=== PATIENT | male | born 1965 | race Caucasian/White ===

== ENCOUNTER → 2016-10-21 | Outpatient (CLI) | payer MEDICAID ==
[~2016-10-21] MED LIST: 1ST TIER UNILE1 EAC1 MC; BACTRIM DS TABL1 TA1 PO; CATAFLAM50 MG PO; CLEOCIN HCL300 M1 PO; FLEXERIL10 MG PO; GLUCOMETER DEX1 PKT IN; GLUCOSE TEST STRIPS; HYDROCODONE-APA1 T55 PO; LORTAB 7.51 TAB 7.5/ PO; METFORMIN HCL500 M2 PO; NAPROXEN PO; NO MEDICATIONS
--- NOTE | ~2016-10-21 | US116 ---
[facility] A Service of [facility] & [facility] RADIOLOGY TEXT RESULTS PATIENT: MONA DENNIS LOCATION: [facility] : 69 UNIT #: [id number] AGE: [address]: Freya Dailey SEX: M ORDER DR: [id number] [facility] [address] [place], [place] [address] [id number] O MR#: [id number] Acc #: [id number] NAME: MONA DENNIS : 1965 SEX: M STUDY DATE/TIME: 10/21/2016 14:07 UNIT: [facility] ROOM: STUDY DESCRIPTION: US Soft Tissue Head/Neck Attending Physician: Freya Dailey A.P.R.N. Referring Physician: Freya Dailey A.P.R.N. Ordering Physician: Freya Dailey A.P.R.N. Primary Care Physician: Freya Dailey A.P.R.N. MEDICAL IMAGING REPORT This report is preliminary unless electronic signature is present EXAM Soft tissue sonogram HISTORY Palpable mass behind the left ear for the past year enlarging over the past 2 weeks. Pain with palpation. TECHNIQUE Ultrasound evaluation was performed in the area of palpable abnormality with hylton-scale imaging. FINDINGS At the site of palpable abnormality, there is a subcutaneous nodule seen superficially. It measures 6 x 13 mm. No cystic component is seen. The appearance is nonspecific by ultrasound criteria. IMPRESSION The palpable abnormality adjacent to the left ear is solid rather than cystic. Imaging features are nonspecific. No shadowing calcifications are seen. It measures 6 x 13 mm. Dictated by... Michael Joseph M.D. THIS IS AN ELECTRONICALLY VERIFIED REPORT Michael Joseph M.D. at 10/22/2016 4:42 PM RLF/evansr TD: 10/22/2016 13:26 JOB #: [id number] MEDICAL IMAGING REPORT Page 1 of 1 COPY
== END | disposition home or self-care (01) ==
LOC: CGUS 12:54
DX: D49.1 Neoplasm of unspecified behavior of respiratory system (principal)
CPT/HCPCS: 76536